=== PATIENT | male | born 1955 | race Caucasian/White ===

== ENCOUNTER 2017-04-21 08:47 | Day surgery (SDC) | payer OTHER ==
[2017-04-19 09:49] VITALS: BMI 32.5
[~2017-04-21 08:47] MED LIST: LACTATED RINGERS 1,000 ML IV SCH; MOXIFLOXACIN HCL 0.5% DROPS 3 ML BTL OP ONE; TETRACAINE 0.5% OPHTH (PF) DROPS 4 ML BTL OP ONE; TIMOLOL 0.5% OPHTH DROPS 5 ML BTL OP ONE
[2017-04-21] MEDS ORDERED: LIDOCAINE 1% 20 ML VIAL (10MG/ML) FOR IV START INTRADERMA ONE (10:10)
[2017-04-21 10:20] VITALS: TEMP 97.9
[2017-04-21] MEDS: CYCLOPENTOLATE 1% OPHTH SOLN 2 ML BTL OP ONE ×3 (10:23→10:35)
[2017-04-21] MEDS: PHENYLEPHRINE 2.5% OPHTH DRP 2ML OP NR ×3 (10:26→10:38)
[2017-04-21] MEDS ORDERED: MIDAZOLAM 2 MG/2 ML VIAL ONE (10:59)
[2017-04-21] MEDS ORDERED: KETOROLAC 30 MG/ML 1 ML VIAL ONE (10:59)
[2017-04-21] MEDS ORDERED: fentaNYL (PF) 50 MCG/ML 2 ML AMP ONE (10:59)
[2017-04-21] MEDS ORDERED: BALANCED SALT IRRIG SOLN COMB2 15 ML IRRIG.SOLN INTRAOCULA ONE (11:06)
[2017-04-21] MEDS ORDERED: DUOVISC KIT (GREEN BOX) INTRAOCULA ONE (11:06)
[2017-04-21] MEDS ORDERED: LIDOCAINE 1% (PF) 10MG/ML VIAL MISCELLANE ONE ×2 (11:08)
[2017-04-21] MEDS ORDERED: EPINEPHrine (PF) 1 MG/ML AMP SQ ONE (11:09)
[2017-04-21] MEDS ORDERED: EPINEPHrine (PF) 0.3 ML in BALANCED SALT IRRIG SOLN COMB2 500 ML IRRIGATION ONE (11:10)
[2017-04-21] MEDS ORDERED: ATROPINE OPHTH SOLN 1% 5ML BTL RIGHT EYE ONE (11:47)
--- NOTE | 2017-04-21 11:51 | P.OP ---
Date of Procedure: 04/21/17 Preoperative Diagnosis: NS & POAG mild Postoperative Diagnosis: same Procedure(s) Performed: PIOL OD & iStent implantation Implants: [id number] 13 .00 x 2.00 & [id number] Anesthesia: MAC Surgeon: Lincoln Hernadez Estimated Blood Loss (ml): 0 Pathology: none sent Condition: stable Disposition: same day Indications for Procedure: POAG & blurry vision Operative Findings: No complications
[2017-04-21 12:49] VITALS: BP 125/77; PULSE 70; RESP 16
--- NOTE | 2017-04-21 14:44 | OP ---
OPERATIVE REPORT DATE OF SURGERY: 21 April 2017. PROCEDURE PERFORMED: Phacoemulsification of cataract and intraocular lens implant of the right eye with eye stent implantation, right eye. PREOPERATIVE DIAGNOSES: Nuclear sclerosis and primary open-angle glaucoma mild stage. POSTOPERATIVE DIAGNOSES: Nuclear sclerosis and primary open angle glaucoma mild stage. SURGEON: Dr. Lincoln Hernadez. ANESTHESIA: Topical. ESTIMATED BLOOD LOSS: None. SPECIMEN: Taken none. NARRATIVE: After obtaining the appropriate consent, the patient was brought to the operating room. There he was placed on cardiac monitoring prepped and draped in the usual sterile manner. He was approached from the right temporal side and using previously acquired corneal topography information the axis of 93 degrees was identified and marked with an Acumed corneal marking set. In addition a 5.5 mm Ricardo ring was used to robyn the central cornea. At the 11 o'clock position an MVR blade was used to create a paracentesis port through this opening 1% Xylocaine MPF 50 50 mix with balanced salt solution was injected into the anterior chamber. This was followed by stabilization of the anterior chamber with Viscoat. A small amount of viscoelastic was placed on the patient's cornea. At the 9 o'clock position, 2.75 mm clarence keratome was used to create a self-sealing corneal flap incision in a lying man's fashion. The patient was then asked to rotate his head approximately 45 degrees to his left and to look the in that general direction. A colonial prism was placed on the patient's cornea and the trabecular mesh was easily identified. A GlaFeaturespaceos model DTS 100 mL eye stent was passed across the anterior chamber and placed within the trabecular meshwork without difficulty. The patient was then returned to the normal supine position and a cystotome was used to begin a continuous tear capsulorrhexis which was completed using the Utrata forceps. Care was taken to ensure that the size of the capsulorrhexis was at least the size of the 5.5 mm Ricardo robyn on the patient's cornea. Hydrodissection and hydrodelineation of the lens was accomplished with balanced salt solution. Phacoemulsification of the lens utilizing phaco chop was accomplished in 17.42 seconds at 12% power. Additional Xylocaine MPF was instilled into the anterior chamber. This was followed by removal of the remaining cortex in and around the capsular bag and careful polishing of the posterior capsule was accomplished. Provisc was then used to stabilize the capsular bag and using both Arenac and pepose capsule polishers care was taken to remove any residual cortical material from under the anterior capsular leaflet as well as much could be retrieved from the equator of the capsular bag. Once the capsule was clean, the temporal incision was enlarged slightly with a clarence keratome and a Bausch and Lomb crystal lens true line BL1UT 13 diopter spherical equivalent 2 diopter astigmatic correction was placed into the capsular bag without difficulty. The lens was rotated using a Sinskey hook and rotated at least 270 degrees to ensure there were no strands of residual cortex that may impede the placement of the lens implant. Once the lens was largely in its proper position Viscoat viscoelastic was removed from in and around the intra-ocular lens with the irrigation aspiration tip. Final adjustment of the intra-ocular lens was accomplished using a Sinskey hook to align with the 93 degree axis, which had previously been placed on the patient's eye. The eye was then brought to normal intraocular pressures through the paracentesis port and to ensure watertight integrity ReSure was used on the temporal and paracentesis wounds. The patient then received 2 drops of 0.5% timolol followed by 2 drops of moxifloxacin and 2 drops of 1% atropine. He was then lightly patched and shielded in the usual manner. There were no complications from the procedure. He tolerated the procedure well and was returned to outpatient recovery in good condition. TAURUS / ЮЛИЯ: [id number] /
== END 2017-04-21 13:03 | disposition home or self-care (01) ==
LOC: OR 08:47
PROVIDERS: ATTEND Ophthalmology
DX: H25.11 Age-related nuclear cataract, right eye (principal); H40.1111 Primary open-angle glaucoma, right eye, mild stage; H21.233 Degeneration of iris (pigmentary), bilateral; H02.836 Dermatochalasis of left eye, unspecified eyelid; H02.833 Dermatochalasis of right eye, unspecified eyelid; H00.023 Hordeolum internum right eye, unspecified eyelid; H52.13 Myopia, bilateral; H00.026 Hordeolum internum left eye, unspecified eyelid; E66.9 Obesity, unspecified; Z68.32 Body mass index [BMI] 32.0-32.9, adult; Z85.46 Personal history of malignant neoplasm of prostate; Z79.899 Other long term (current) drug therapy
CPT/HCPCS: 0191T; 66984

== ENCOUNTER 2017-05-19 08:52 | Day surgery (SDC) | payer OTHER ==
[2017-05-14 16:14] VITALS: BMI 32.5
[~2017-05-19 08:52] MED LIST changes: -LACTATED RINGERS 1,000 ML IV SCH
[2017-05-19] MEDS ORDERED: LIDOCAINE 1% 20 ML VIAL (10MG/ML) FOR IV START INTRADERMA ONE (09:37)
[2017-05-19 09:58] VITALS: TEMP 97.9
[2017-05-19] MEDS: CYCLOPENTOLATE 1% OPHTH SOLN 2 ML BTL OP ONE ×3 (10:01→10:14)
[2017-05-19] MEDS: PHENYLEPHRINE 2.5% OPHTH DRP 2ML OP NR ×3 (10:04→10:18)
[2017-05-19] MEDS: LACTATED RINGERS 1,000 ML IV SCH ×2 (10:16→11:45)
[2017-05-19] MEDS ORDERED: MIDAZOLAM 2 MG/2 ML VIAL ONE (11:47)
[2017-05-19] MEDS ORDERED: fentaNYL (PF) 50 MCG/ML 2 ML AMP ONE (11:47)
[2017-05-19] MEDS ORDERED: BALANCED SALT IRRIG SOLN COMB2 15 ML IRRIG.SOLN IRRIGATION ONE (11:48)
[2017-05-19] MEDS ORDERED: DUOVISC KIT (GREEN BOX) INTRAOCULA ONE (11:49)
[2017-05-19] MEDS ORDERED: LIDOCAINE 1% (PF) 10MG/ML VIAL INTRAARTIC ONE ×2 (11:49)
[2017-05-19] MEDS ORDERED: EPINEPHrine 1 MG/ML 1 ML AMP IRRIGATION ONE (11:50)
[2017-05-19] MEDS ORDERED: CHONDROITIN-SOD HYALURONATE 1 EACH SYRINGE (0.75 ML) INTRAOCULA ONE (12:08)
[2017-05-19] MEDS ORDERED: FLUORESCEIN STRIPS 1 MG STRIP LEFT EYE ONE (12:09)
[2017-05-19] MEDS ORDERED: ATROPINE OPHTH SOLN 1% 5ML BTL LEFT EYE ONE (12:47)
--- NOTE | 2017-05-19 12:50 | P.OP ---
Date of Procedure: 05/19/17 Preoperative Diagnosis: NS & POAG astigmatism Postoperative Diagnosis: same Procedure(s) Performed: PIOL & iStent implant Implants: [id number] & iStent [id number] Anesthesia: MAC Surgeon: Lincoln Hernadez Pathology: none sent Condition: stable Disposition: same day Indications for Procedure: blurry vision Operative Findings: No complications
[2017-05-19 12:52] VITALS: RESP 16
[2017-05-19 13:11] VITALS: BP 134/74; PULSE 73
--- NOTE | 2017-05-20 09:12 | OP ---
OPERATIVE REPORT DATE OF SURGERY: 05/19/2017. PROCEDURE: Phacoemulsification of cataract and intraocular lens implant of the left eye with eye stent implantation left eye. PREOPERATIVE DIAGNOSES: Nuclear sclerosis and primary open-angle glaucoma, moderate stage and regular astigmatism. POSTOPERATIVE DIAGNOSES: Nuclear sclerosis and primary open-angle glaucoma, moderate stage and regular astigmatism. SURGEON: Dr. Lincoln Hernadez. ANESTHESIA: Topical. ESTIMATED BLOOD LOSS: None. SPECIMEN TAKEN: None. NARRATIVE: After obtaining the appropriate consent, the patient was brought to the operating room there he was placed under cardiac monitoring, prepped and draped in the usual sterile manner. He was approached from his left temporal side. Using previously acquired corneal topography information the axis of 85 degrees was identified and marked with a gentian joshua marker. In the center of the cornea, a 5.5 mm Ricardo ring inked with gentian joshua was placed central over the primary corneal reflex. At the 5 o'clock position an MVR blade was used to create a paracentesis port. Through this opening 1% Xylocaine MPF 50:50 mix with balanced salt solution and 1:1000 epinephrine was instilled into the anterior chamber. This was followed by stabilization of the anterior chamber with Viscoat. At the 3 o'clock position, a 2.75 mm clarence keratome was used to create a self-sealing corneal flap incision in a Langerman's fashion. A small amount of Viscoat was then placed on the patient's cornea. The patient was then asked to rotate his head to the right and look in that general direction that his head was facing. A gonioprism was placed on the patient's cornea and the trabecular meshwork was identified. A Glaukos iStent model GTS 100L was then placed into the trabecular meshwork with minimal difficulty. The patient was then rotated back into the normal supine position and it appeared that his mydriasis was being satisfactorily maintained. A cystotome was then introduced to begin a continuous tear capsulorrhexis which was completed using the Utrata forceps. Care was taken to ensure that the size of the capsulorrhexis was at least the size of the robyn placed centrally on the patient's cornea previously in the case. Hydrodissection and hydrodelineation of the lens was accomplished with balanced salt solution. Phacoemulsification lens utilizing phaco chop was accomplished, 11.79 seconds at 10% power. This was followed by installation of the lidocaine, epinephrine, and BSS to provide a little additional intracameral anesthesia. Care was taken to remove the remaining cortex and careful polishing of the posterior capsule was accomplished. Additional Provisc was then used to stabilize the capsule and using the Lydia and Pepose capsule polishers, care was taken to remove as much of the cortical material from under the anterior capsule as well as whatever was not appreciated at the equator during normal irrigation and aspiration. The temporal incision was then enlarged slightly and a Bausch and Lomb true line model BL1UT 12.5 x 2.75 diopter posterior chamber intraocular lens was then inserted into the capsular bag without difficulty. The lens was rotated to identify any remaining cortical material, which might require additional capsular cleaning. Once all remaining strands of cortex which were hidden from view were removed. The lens was then positioned in the 85 degree axis as previously marked on the patient's eye. Irrigation and aspiration of all remaining viscoelastic from in and around the intra-ocular lens as well as tamponading the lens against the posterior capsule was accomplished. The eye was brought to normal intraocular pressure through the paracentesis port with balanced salt solution and the temporal incision was closed with a single 10-0 nylon suture in an X fashion and ensuring that even the paracentesis did not contribute to a any aqueous leak ReSure was placed over both incisions to confirm watertight integrity. He then received 2 drops of 0.5% timolol followed by 2 drops of moxifloxacin as well as a drop of 1% atropine. He was lightly patched and shielded in the usual manner. There were no complications from the procedure. He tolerated the procedure well and was returned to outpatient recovery in good condition. MMODL / IJN: [id number] / TING
== END 2017-05-19 13:24 | disposition home or self-care (01) ==
LOC: OR 08:52
PROVIDERS: ATTEND Ophthalmology
DX: H25.12 Age-related nuclear cataract, left eye (principal); H40.1132 Primary open-angle glaucoma, bilateral, moderate stage; H21.233 Degeneration of iris (pigmentary), bilateral; H02.833 Dermatochalasis of right eye, unspecified eyelid; H02.836 Dermatochalasis of left eye, unspecified eyelid; H00.023 Hordeolum internum right eye, unspecified eyelid; H52.13 Myopia, bilateral; H00.026 Hordeolum internum left eye, unspecified eyelid; H40.041 Steroid responder, right eye; H57.04 Mydriasis; H52.222 Regular astigmatism, left eye; Z98.41 Cataract extraction status, right eye; Z96.1 Presence of intraocular lens; Z85.46 Personal history of malignant neoplasm of prostate; Z79.899 Other long term (current) drug therapy; Z97.3 Presence of spectacles and contact lenses; Z90.79 Acquired absence of other genital organ(s)
CPT/HCPCS: 0191T; 66984

== ENCOUNTER → 2018-09-30 | Outpatient (CLI) | payer BC ==
--- NOTE | 2018-09-30 10:32 | US ---
EXAMINATION TYPE: US venous doppler duplex LE LT DATE OF EXAM: 09/30/2018 10:16 AM COMPARISON: NONE CLINICAL HISTORY: M25.569 pain left leg. SIDE PERFORMED: Left TECHNIQUE: The lower extremity deep venous system is examined utilizing real time linear array sonog suma with graded compression, doppler sonography and color-flow sonography. VESSELS IMAGED: External Iliac Vein (EIV) Common Femoral Vein Deep Femoral Vein Greater Saphenous Vein * Femoral Vein Popliteal Vein Small Saphenous Vein * Proximal Calf Veins (* superficial vessels) Grayscale, color doppler, spectral doppler imaging performed of the deep veins of the left lower extr emity. There is normal flow, compressibility, vascular waveforms. Left Leg: Negative for DVT IMPRESSION: No sonographic evidence of deep venous arthrosis within the left lower extremity.
== END | disposition home or self-care (01) ==
LOC: RADUSWWP 09:51
PROVIDERS: ATTEND Orthopaedic Surgery
DX: I80.9 Phlebitis and thrombophlebitis of unspecified site (principal); M17.12 Unilateral primary osteoarthritis, left knee

== ENCOUNTER 2019-05-31 17:08 | Emergency (ER) | payer BC ==
[2019-05-31 17:17] VITALS: RESP 18; TEMP 98
--- NOTE | 2019-05-31 17:47 | ED ---
General Adult HPI - General Chief complaint: Chest Pain Stated complaint: Chest pain, SOB Time Seen by Provider: 05/31/19 17:23 Source: patient, RN notes reviewed, old records reviewed Mode of arrival: wheelchair Limitations: no limitations - History of Present Illness Initial comments: 63-year-old male presents for evaluation of 3 days of central chest tightness. Patient has no known history of coronary artery disease. He states that approximately 10 days he developed some left lower quadrant pain and was put on Cipro and Flagyl for diverticulitis. He states that the symptoms have nearly resolved with some minimal pain in the left lower quadrant. He felt that initially the chest tightness may be related to indigestion from the medications he was on. However he's been off his medications for 3 days and his symptoms have persisted. He reports some mild dyspnea, he did feel lightheaded earlier in the day today. No lower extremity pain or swelling. Borderline high cholesterol. No history diabetes. Nonsmoker. No known coronary artery disease. - Related Data Home Medications Medication Instructions Recorded Confirmed Naproxen Sodium 220 mg PO Q6H PRN 05/31/19 05/31/19 Allergies Allergy/AdvReac Type Severity Reaction Status Date / Time No Known Allergies Allergy Verified 05/31/19 17:51 Review of Systems ROS Statement: Those systems with pertinent positive or pertinent negative responses have been documented in the HPI. ROS Other: All systems not noted in ROS Statement are negative. Past Medical History Past Medical History: Cancer, Eye Disorder Additional Past Medical History / Comment(s): Prostate CA/2017,glaucoma History of Any Multi-Drug Resistant Organisms: None Reported Past Surgical History: Orthopedic Surgery, Prostate Surgery Additional Past Surgical History / Comment(s): left Knee- scope; Colonoscopy Past Anesthesia/Blood Transfusion Reactions: No Reported Reaction Past Psychological History: No Psychological Hx Reported Smoking Status: Never smoker Past Alcohol Use History: Occasional Past Drug Use History: None Reported - Past Family History Mother Family Medical History: Cancer Additional Family Medical History / Comment(s): Colon CA General Exam Limitations: no limitations General appearance: alert, in no apparent distress Head exam: Present: atraumatic, normocephalic Eye exam: Present: normal appearance, PERRL ENT exam: Present: normal exam Neck exam: Present: normal inspection. Absent: tenderness, meningismus Respiratory exam: Present: normal lung sounds bilaterally. Absent: respiratory distress, wheezes Cardiovascular Exam: Present: regular rate, normal rhythm, normal heart sounds GI/Abdominal exam: Present: soft. Absent: distended, tenderness, guarding, rebound Extremities exam: Present: normal inspection, normal capillary refill. Absent: pedal edema, calf tenderness Neurological exam: Present: alert, oriented X3, CN II-XII intact. Absent: motor sensory deficit Psychiatric exam: Present: normal affect, normal mood Skin exam: Present: warm, dry, intact. Absent: cyanosis, diaphoretic Course Vital Signs 05/31/19 05/31/19 05/31/19 17:11 18:00 18:30 Temperature 98 F Pulse Rate 69 56 L 62 Respiratory 18 18 18 Rate Blood Pressure 134/80 128/87 135/83 O2 Sat by Pulse 98 97 98 Oximetry EKG Findings - EKG Comments: EKG Findings:: EKG: Sinus rhythm with PVC, rate of 65, MO interval 160, QRS duration 110, QTC 472, no ST segment elevation. Medical Decision Making - Medical Decision Making 63-year-old male with chief complaint of substernal chest pain. Patient initially thought this was indigestion. He's had constant symptoms for 3 days. His EKG is sinus rhythm with no ST segment elevation or definitive signs of ischemia. Chest x-ray showing a calcified granuloma no other acute findings. Has a normal CBC, normal CMP, negative d-dimer, negative troponin. I did have a discussion with both the patient and his primary care physician Dr. Gianluca pacheco inpatient versus outpatient follow-up. Given the current coronavirus and he low suspicion for CAD at this time we all agreed to outpatient follow-up with close return parameters. Patient will return with any worsening or changing symptoms. - Lab Data Result diagrams: 05/31/19 18:12 05/31/19 18:12 Lab Results 05/31/19 05/31/19 05/31/19 Range/Units 18:12 18:12 18:12 WBC 5.3 (3.8-10.6) k/uL RBC 4.36 (4.30-5.90) m/uL Hgb 13.5 (13.0-17.5) gm/dL Hct 41.0 (39.0-53.0) % MCV 94.0 (80.0-100.0) fL MCH 31.0 (25.0-35.0) pg MCHC 33.0 (31.0-37.0) g/dL RDW 14.1 (11.5-15.5) % Plt Count 196 (150-450) k/uL Neutrophils % 49 % Lymphocytes % 35 % Monocytes % 6 % Eosinophils % 7 % Basophils % 1 % Neutrophils # 2.6 (1.3-7.7) k/uL Lymphocytes # 1.9 (1.0-4.8) k/uL Monocytes # 0.3 (0-1.0) k/uL Eosinophils # 0.4 (0-0.7) k/uL Basophils # 0.0 (0-0.2) k/uL PT 10.1 (9.0-12.0) sec INR 1.0 (<1.2) APTT 25.6 (22.0-30.0) sec D-Dimer 0.42 (<0.60) mg/L FEU Sodium 137 (137-145) mmol/L Potassium 3.8 (3.5-5.1) mmol/L Chloride 106 (98-107) mmol/L Carbon Dioxide 24 (22-30) mmol/L Anion Gap 7 mmol/L BUN 18 (9-20) mg/dL Creatinine 0.94 (0.66-1.25) mg/dL Est GFR (CKD-EPI)AfAm >90 (>60 ml/min/1.73 sqM) Est GFR (CKD-EPI)NonAf 86 (>60 ml/min/1.73 sqM) Glucose 84 (74-99) mg/dL Calcium 9.3 (8.4-10.2) mg/dL Magnesium 2.1 (1.6-2.3) mg/dL Total Bilirubin 0.4 (0.2-1.3) mg/dL AST 36 (17-59) U/L ALT 58 H (4-49) U/L Alkaline Phosphatase 59 (38-126) U/L Troponin I (0.000-0.034) ng/mL NT-Pro-B Natriuret Pep pg/mL Total Protein 6.8 (6.3-8.2) g/dL Albumin 4.2 (3.5-5.0) g/dL Lipase 139 (23-300) U/L 05/31/19 05/31/19 Range/Units 18:12 18:12 WBC (3.8-10.6) k/uL RBC (4.30-5.90) m/uL Hgb (13.0-17.5) gm/dL Hct (39.0-53.0) % MCV (80.0-100.0) fL MCH (25.0-35.0) pg MCHC (31.0-37.0) g/dL RDW (11.5-15.5) % Plt Count (150-450) k/uL Neutrophils % % Lymphocytes % % Monocytes % % Eosinophils % % Basophils % % Neutrophils # (1.3-7.7) k/uL Lymphocytes # (1.0-4.8) k/uL Monocytes # (0-1.0) k/uL Eosinophils # (0-0.7) k/uL Basophils # (0-0.2) k/uL PT (9.0-12.0) sec INR (<1.2) APTT (22.0-30.0) sec D-Dimer (<0.60) mg/L FEU Sodium (137-145) mmol/L Potassium (3.5-5.1) mmol/L Chloride (98-107) mmol/L Carbon Dioxide (22-30) mmol/L Anion Gap mmol/L BUN (9-20) mg/dL Creatinine (0.66-1.25) mg/dL Est GFR (CKD-EPI)AfAm (>60 ml/min/1.73 sqM) Est GFR (CKD-EPI)NonAf (>60 ml/min/1.73 sqM) Glucose (74-99) mg/dL Calcium (8.4-10.2) mg/dL Magnesium (1.6-2.3) mg/dL Total Bilirubin (0.2-1.3) mg/dL AST (17-59) U/L ALT (4-49) U/L Alkaline Phosphatase (38-126) U/L Troponin I <0.012 (0.000-0.034) ng/mL NT-Pro-B Natriuret Pep 37 pg/mL Total Protein (6.3-8.2) g/dL Albumin (3.5-5.0) g/dL Lipase (23-300) U/L Disposition Clinical Impression: Chest pain Disposition: HOME SELF-CARE Condition: Good Instructions (If sedation given, give patient instructions): Chest Pain (ED) Additional Instructions: Please return with any worsening or changing symptoms. Is patient prescribed a controlled substance at d/c from ED?: No Referrals: Kurtis Hough MD [Primary Care Provider] - 1-2 days Time of Disposition: 19:34
[2019-05-31 18:32] LABS: Basophils % (A) 1 %; Eosinophils # (A) 0.4 k/uL (0-0.7); Eosinophils % (A) 7 %; HGB 13.5 gm/dL (13.0-17.5); Lymphocytes # (A) 1.9 k/uL (1.0-4.8); Lymphocytes % (A) 35 %; Mean Platelet Volume 7.1; Monocytes # (A) 0.3 k/uL (0-1.0); Monocytes % (A) 6 %; Neutrophils # (A) 2.6 k/uL (1.3-7.7); Neutrophils % (A) 49 %; Platelet Count 196 k/uL (150-450); RBC 4.36 m/uL (4.30-5.90); RDW 14.1 % (11.5-15.5); WBC 5.3 k/uL (3.8-10.6)
[2019-05-31 18:47] LABS: ALT 58 U/L (4-49); AST 36 U/L (17-59); African American GFR (CKD) >90 (>60 ml/min/1.73 sqM); Albumin 4.2 g/dL (3.5-5.0); Alkaline Phosphatase 59 U/L (38-126); Anion Gap 7 mmol/L; Blood Urea Nitrogen 18 mg/dL (9-20); Calcium 9.3 mg/dL (8.4-10.2); Carbon Dioxide 24 mmol/L (22-30); Chloride 106 mmol/L (98-107); Glucose 84 mg/dL (74-99); Magnesium 2.1 mg/dL (1.6-2.3); Non-African American GFR(CKD) 86 (>60 ml/min/1.73 sqM); Potassium 3.8 mmol/L (3.5-5.1); Sodium 137 mmol/L (137-145); Total Bilirubin 0.4 mg/dL (0.2-1.3); Total Protein 6.8 g/dL (6.3-8.2)
[2019-05-31 18:49] LABS: D-Dimer 0.42 mg/L FEU (<0.60); Partial Thromboplastin Time 25.6 sec (22.0-30.0); Prothrombin Time 10.1 sec (9.0-12.0)
--- NOTE | 2019-05-31 19:07 | XR ---
EXAMINATION TYPE: XR chest 1V DATE OF EXAM: 05/31/2019 COMPARISON: NONE HISTORY: 63-year-old male with chest pain TECHNIQUE: Single frontal view of the chest is obtained. FINDINGS: Heart upper limits of normal in size. Multiple calcified AP window and left hilar lymph nodes suggest prior granulomatous disease. Hazy peripheral lung densities related to overlying soft tissue. No fra nk consolidation or pleural effusion seen. IMPRESSION: No acute cardiopulmonary process. Suspect prior granulomatous disease with calcified AP window and le ft hilar lymph nodes. Outpatient follow-up CT chest can provide more detailed assessment if indicated .
[2019-05-31] MEDS ORDERED: ASPIRIN 325 MG TAB PO STA (19:17)
[2019-05-31 20:08] VITALS: BP 147/85; PULSE 58
== END 2019-05-31 20:20 | disposition home or self-care (01) ==
LOC: EC 17:08
DX: R07.2 Precordial pain (principal); R06.02 Shortness of breath; R10.32 Left lower quadrant pain; R42 Dizziness and giddiness; J84.10 Pulmonary fibrosis, unspecified; Z85.46 Personal history of malignant neoplasm of prostate; Z87.19 Personal history of other diseases of the digestive system
CPT/HCPCS: 36415; 71045; 80053; 83690; 83735; 83880; 84484; 85025; 85379; 85610; 85730; 93005; 99285

== ENCOUNTER → 2019-06-14 | Outpatient (CLI) | payer BC ==
--- NOTE | 2019-06-14 11:46 | ECHOS ---
STRESS ECHOCARDIOGRAM INDICATIONS: Chest pain. MEDICATIONS: Omeprazole. BASELINE HEART RATE: 80 BASELINE BLOOD PRESSURE: 125/68 MAXIMUM HEART RATE: 149 MAXIMUM BLOOD PRESSURE: 179/66 85% MPHR: 133 100% MPHR: 157 METS: 7.1 MAXIMUM STAGE REACHED: 2 TOTAL EXERCISE TIME: 6:00 CLINICAL INFORMATION: Baseline EKG shows sinus rhythm, normal axis, normal intervals. Patient exercised per Cade protocol for a total of 6 minutes achieving 7.1 METs, 85% of predicted maximal heart rate without chest pain or diagnostic ST segment depression. Baseline echo shows normal left ventricular wall motion, systolic function, postexercise there is normal hyperdynamic response of all segments of myocardium noted. CONCLUSION: 1. Average exercise tolerance. 2. Negative stress test by EKG criteria. 3. Negative stress echo. MMODL / IJN: [id number] /
== END | disposition home or self-care (01) ==
LOC: RADNMMAIN 08:08
PROVIDERS: ATTEND Family Medicine
DX: R07.89 Other chest pain (principal)
CPT/HCPCS: 93351

== ENCOUNTER → 2021-11-27 | Outpatient (CLI) | payer MEDICARE, BC | END | disposition home or self-care (01) | LOC: LABWHC1 10:44 | PROVIDERS: ATTEND Urology | DX: C61 Malignant neoplasm of prostate (principal) | CPT/HCPCS: 36415; 84153 ==

== ENCOUNTER → 2022-05-11 | Outpatient (CLI) | payer MEDICARE ==
[2022-05-11 17:42] LABS: African American GFR (CKD) >90 (>60 ml/min/1.73 sqM); Blood Urea Nitrogen 20 mg/dL (9-20); Non-African American GFR(CKD) 82 (>60 ml/min/1.73 sqM)
--- NOTE | 2022-05-11 20:37 | CT ---
EXAMINATION TYPE: CT abdomen pelvis w con CT DLP: 1809.9 mGycm, Automated exposure control for dose reduction was used. DATE OF EXAM: 05/11/2022 7:19 PM COMPARISON: CT abdomen pelvis most recent from CLINICAL INDICATION:Male, 66 years old with history of K57.92 DVTRCLI OF INTEST, PART UNSP; Hx of div erticulitis. Pt c/o of mid abdominal pain. TECHNIQUE: Axial CT of the abdomen and pelvis. Sagittal and coronal reformats were created on a [employer] workstation. Contrast used:100cc mL of Isovue 300 with IV Contrast, Oral contrast used: with Oral Contrast FINDINGS: LOWER CHEST: Left pulmonary calcified granuloma and partially calcified lymph nodes. These are compat ible with sequela of chronic granulomatous disease. ABDOMEN LIVER: Unremarkable GALLBLADDER AND BILE DUCTS: Unremarkable. PANCREAS: Unremarkable. SPLEEN: Unremarkable. ADRENAL GLANDS: Unremarkable. KIDNEYS AND URETERS: No evidence of hydronephrosis or renal calculus. The ureters are unremarkable. PELVIS BLADDER: Unremarkable REPRODUCTIVE: Unremarkable. ABDOMEN & PELVIS STOMACH AND BOWEL: No evidence of bowel obstruction. Scattered colonic diverticula present. No signif icant inflammation changes around the diverticula. PERITONEUM/RETROPERITONEUM: No evidence of pneumoperitoneum or free fluid. VASCULATURE: Mild atherosclerotic calcifications are present throughout the abdominal aorta and its b ranches. No evidence of aortic aneurysm. MUSCULOSKELETAL: No acute osseous abnormalities. Mild disc degeneration changes are present throughou t the thoracolumbar spine. LYMPH NODES: No gross evidence for lymphadenopathy. SOFT TISSUE/ABDOMINAL WALL: Unremarkable IMPRESSION: 1. No evidence for acute intra-abdominal process. 2. Colonic diverticulosis without evidence for diverticulitis.
== END | disposition home or self-care (01) ==
LOC: RADCTMAIN 17:02
PROVIDERS: ATTEND Family Medicine
DX: K57.30 Diverticulosis of large intestine without perforation or abscess without bleeding (principal)
CPT/HCPCS: 82565; 84520; 74177; 36415; Q9967

== ENCOUNTER → 2022-12-23 | Outpatient (CLI) | payer MEDICARE | END | disposition home or self-care (01) | LOC: LABWHC1 11:32 | PROVIDERS: ATTEND Urology | DX: C61 Malignant neoplasm of prostate (principal) | CPT/HCPCS: 36415; 84153 ==

== ENCOUNTER → 2023-12-29 | Outpatient (CLI) | payer MEDICARE | END | disposition home or self-care (01) | LOC: LABWHC1 10:30 | PROVIDERS: ATTEND Urology | DX: C61 Malignant neoplasm of prostate (principal) | CPT/HCPCS: 36415; 84153 ==

== ENCOUNTER → 2024-02-24 | Outpatient (CLI) | payer MEDICARE ==
[2024-02-24 15:11] LABS: Partial Thromboplastin Time 23.3 sec (22.0-30.0)
[2024-02-24 15:27] LABS: INR 0.9 (<1.2); Prothrombin Time 10.2 sec (10.0-12.5)
[2024-02-24 20:28] LABS: HCT 43.5 % (39.6-50.0); HGB 14.2 g/dL (13.0-17.0); MCH 30.9 pg (27.0-32.0); MCHC 32.6 g/dL (32.0-37.0); MCV 94.6 FL (80.0-97.0); Mean Platelet Volume 9.6 FL (9.5-12.2); NRBC Per 100 WBC 0 X 10*3/uL (0.00-0.01); Platelet Count 272 X 10*3/uL (140-440); RDW 14.2 % (11.5-14.5); WBC 9.21 X 10*3/uL (4.50-10.00)
[2024-02-24 21:01] LABS: ALT 21 U/L (10-49); AST 16 U/L (14-35); Albumin 4.4 g/dL (3.8-4.9); Albumin/Globulin Ratio 1.83 Ratio (1.60-3.17); Alkaline Phosphatase 78 U/L (41-126); BUN/Creat Ratio 15.23 Ratio (12.00-20.00); Blood Urea Nitrogen 19.8 mg/dL (9.0-27.0); Calcium 9.5 mg/dL (8.7-10.3); Carbon Dioxide 24.1 mmol/L (21.6-31.8); Chloride 105 mmol/L (96-109); Globulin 2.4 g/dL (1.6-3.3); Glucose 99 mg/dL (70-110); Potassium 4.2 mmol/L (3.5-5.5); Sodium 141 mmol/L (135-145); Total Bilirubin 0.3 mg/dL (0.3-1.2); Total Protein 6.8 g/dL (6.2-8.2)
== END | disposition home or self-care (01) ==
LOC: LABPAT 14:25
PROVIDERS: ATTEND Orthopaedic Surgery
DX: Z01.818 Encounter for other preprocedural examination (principal); Z22.322 Carrier or suspected carrier of Methicillin resistant Staphylococcus aureus; E11.9 Type 2 diabetes mellitus without complications; M17.12 Unilateral primary osteoarthritis, left knee
CPT/HCPCS: 80053; 83036; 85027; 85610; 85730; 87070; 93005

== ENCOUNTER → 2024-03-02 | Outpatient (CLI) | payer MEDICARE ==
--- NOTE | 2024-03-02 10:41 | CT ---
EXAMINATION TYPE: CT left knee - [facility] Protocol DATE OF EXAM: 03/02/2024 8:55 AM COMPARISON: None. CLINICAL INDICATION: Male, 68 years old with history of M17.12 OA LEFT KNEE, left knee [facility] protocol, TECHNIQUE: CT both hips, left knee, and both ankles for presurgical protocol. Coronal and sagittal re constructions performed. CT DLP: 627 mGycm, Automated exposure control for dose reduction was used. FINDINGS: Hips: There is [id number] degenerative change at both hips. Prostate gland not seen, possibly smaller surgically absent. No acute fracture, subluxation, dislocation. Left knee: Evidence of previous ACL graft reconstruction. However, there is tricompartmental degenerative spurri ng with significant joint space narrowing in the medial and lateral compartments and along the medial facets and the patellofemoral compartment. Small knee joint effusion. Suspect a ganglion cysts along the posterior aspect of the knee extending superiorly measuring 4.2 x 2.3 cm. Ankles: The bilateral tibiotalar joints are intact as there is some ossific densities at the right medial mal leolus and anterior margin of the tibiotalar joint on the right suggesting sequela of old injury and underlying focal osteoarthritic change. No acute fracture, subluxation, dislocation is seen. IMPRESSION: 1. IMAGING FOR SURGICAL PLANNING PURPOSES. THERE IS MODERATE TO SEVERE LEFT KNEE OA STATUS POST ACL G RAFT RECONSTRUCTION. INCIDENTAL 4.2 X 2.3 CM GANGLION CYST POSTERIOR SUPERIOR ASPECT OF THE LEFT KNEE . 2. [id number] BILATERAL HIP OA. SOME FOCAL OSTEOARTHRITIC CHANGE ALONG THE ANTERIOR ASPECT OF T HE RIGHT TIBIOTALAR JOINT. [facility], , 03/02/2024 10:38 AM
== END | disposition home or self-care (01) ==
LOC: RADCTMAIN 07:45
PROVIDERS: ATTEND Orthopaedic Surgery
DX: M17.12 Unilateral primary osteoarthritis, left knee (principal); M16.0 Bilateral primary osteoarthritis of hip; M67.462 Ganglion, left knee

== ENCOUNTER 2024-03-24 07:53 | Day surgery (SDC) | payer MEDICARE ==
[~2024-03-24 07:53] MED LIST changes: +ACETAMINOPHEN TAB 500 MG TAB PO PRN; -MOXIFLOXACIN HCL 0.5% DROPS 3 ML BTL OP ONE; -TETRACAINE 0.5% OPHTH (PF) DROPS 4 ML BTL OP ONE; -TIMOLOL 0.5% OPHTH DROPS 5 ML BTL OP ONE; +TRANEXAMIC 1,000 MG/100ML-NACL 1,000 MG in SALINE 1 100ML.BAG IV PRN; +TRANEXAMIC 1,000 MG/100ML-NACL 1,000 MG in SALINE 1 100ML.BAG IVPB PRN
[2024-03-24] MEDS: IV FLUID CONTINUATION 1,000 ML IV ONE ×2 (08:11→11:13)
[2024-03-24] MEDS: oxyCODONE ER 10 MG TAB.ER.12H PO PRN (08:55)
[2024-03-24] MEDS: DOCUSATE 100 MG CAP PO PRN (08:55)
[2024-03-24] MEDS: MIDAZOLAM 2 MG/2 ML VIAL IV PRN (08:57)
[2024-03-24] MEDS: LACTATED RINGERS 1,000 ML IV SCH ×2 (09:07→17:33)
--- NOTE | 2024-03-24 09:07 | P.ANPRN ---
Procedure Note - Anesthesia - Nerve Block Performed Left Adductor Canal Single Time Out Performed: Yes ([id number]) Date of Procedure: 03/24/24 Procedure Start Time: 09:00 Procedure Stop Time: 09:10 Location of Patient: PreOp Indication: Acute Post-Operative Pain, Requested by Surgeon Sedation Type: Sedate with meaningful contact maintained Preparation: Sterile Prep, Sterile Dressing Position: Supine Catheter: None Needle Types: Pajunk Needle Gauge: 21 Ultrasound used to visualize needle placement: Yes Ultrasound used to observe medication spread: Yes Injectate: 0.5% Ropivacaine (see comment for volume) (21 mL of block solution containing 10 mL of 0.5% ropivacaine mixed with 10 mL of preservative-free normal saline, and 4 mg of dexamethasone) Blood Aspirated: No Pain Paresthesia on Injection Noted: No Resistance on Injection: Normal Image Stored and Saved: Yes Events: Uneventful and Well Tolerated
[2024-03-24] MEDS: ONDANSETRON 4 MG/2 ML VIAL IVP PRN ×2 (09:08→17:08)
[2024-03-24] MEDS: FAMOTIDINE 20 MG/2 ML VIAL IVP PRN (09:08)
[2024-03-24] MEDS: KETOROLAC 15 MG/ML 1 ML VIAL IVP PRN (09:08)
--- NOTE | 2024-03-24 09:09 | P.ANPRN ---
Procedure Note - Anesthesia - Nerve Block Performed Left iPack Single Time Out Performed: Yes ([id number]) Date of Procedure: 03/24/24 Procedure Start Time: 09:00 Procedure Stop Time: 09:10 Location of Patient: PreOp Indication: Acute Post-Operative Pain, Requested by Surgeon Sedation Type: Sedate with meaningful contact maintained Preparation: Sterile Prep, Sterile Dressing Position: Supine Catheter: None Needle Types: Pajunk Needle Gauge: 21 Ultrasound used to visualize needle placement: Yes Ultrasound used to observe medication spread: Yes Injectate: 0.5% Ropivacaine (see comment for volume) Blood Aspirated: No Pain Paresthesia on Injection Noted: No Resistance on Injection: Normal Image Stored and Saved: Yes Events: Uneventful and Well Tolerated (20 mL of block solution containing 10 mL of 0.5% ropivacaine mixed with 10 mL of preservative-free normal saline)
[2024-03-24] MEDS: DEXAMETHASONE SOD PHOSPHATE 10 MG/ML 1 ML VIAL IV PRN (09:12)
[2024-03-24] MEDS: ROPIVACAINE/EPI/CLONIDINE/KET 50 ML SYRINGE MISCELLANE PRN (10:24)
[2024-03-24] MEDS ORDERED: ROPIVACAINE 5 MG/ML 30 ML VIAL ONE (10:30)
[2024-03-24] MEDS ORDERED: MIDAZOLAM 2 MG/2 ML VIAL ONE (10:30)
[2024-03-24] MEDS ORDERED: DEXAMETHASONE SOD PHOSPHATE 4 MG/ML 1 ML VIAL ONE (10:30)
[2024-03-24] MEDS ORDERED: fentaNYL (PF) 50 MCG/ML 2 ML AMP ONE (10:30)
[2024-03-24] MEDS ORDERED: KETAMINE HCL IN 0.9 % NACL 50 MG/5 ML SYRINGE ONE (10:30)
[2024-03-24] MEDS ORDERED: HYDROmorphone (PF) 1 MG/ML ONE (10:30)
[2024-03-24] MEDS ORDERED: LIDOCAINE 1% INJ 10MG/ML (20 ML MDV) ONE (10:30)
[2024-03-24] MEDS ORDERED: SUCCINYLCHOLINE CHLORIDE 200 MG/10 ML VIAL IV ONE (10:30)
[2024-03-24] MEDS ORDERED: SODIUM CHLORIDE 0.9% (PF) 10 ML VIAL ONE (10:30)
[2024-03-24] MEDS ORDERED: PROPOFOL 10 MG/ML 20 ML VIAL IV ONE (10:30)
[2024-03-24] MEDS ORDERED: TRANEXAMIC 1,000 MG/100ML-NACL PREMIX BAG ONE (10:30)
--- NOTE | 2024-03-24 12:24 | P.OP ---
Date of Procedure: 03/24/24 Preoperative Diagnosis: Severe left knee osteoarthritis, prior ACL reconstruction Bilateral hip arthritis Postoperative Diagnosis: Same Procedure(s) Performed: 1. Left total knee arthroplasty 2. Computer assisted musculoskeletal navigation using CT/MRI images Implants: 1. [place] [employer] CR Femur Size #7 2. [place] [employer] [place] Tibial Base Size #7 3. [place] CS poly Size #7, 9-mm 4. [employer] all poly patella, Size #35 Anesthesia: SHINE, regional Surgeon: Doyle Giles [employer] Sales #1: Tapan Mathews Estimated Blood Loss (ml): 100 IV fluids (ml): 900 Pathology: none sent Condition: stable Disposition: PACU Indications for Procedure: I met with the patient preoperatively in the office setting and discussed treatment of their symptomatic knee arthritis. They failed a long course of nonsurgical treatment and elected to proceed with an elective total knee replacement. I discussed the potential risks and complications at length and gave them ample time to ask questions. Risks discussed included: risks from anesthesia, superficial site surgical infection, acute and/or chronic periprosthetic joint infection, delayed wound healing, drainage, wound necrosis, instability, stiffness, stiffness requiring manipulation and/or revision surgery, damage to local blood vessels or nerves, aseptic loosening of the implants, extensor mechanism issues including disruption, patellar maltracking, avascular necrosis etc., continued or worsened knee pain, generalized dissatisfaction with surgical outcome, need for revision surgery, an inability to regain preinjury level of function, DVT, PE, other medical complications, and possibly loss of life or limb. The patient voiced their understanding that while these are the most common complications other less common complications are possible. They provided both their verbal and written consent to go forward with surgery. Operative Findings: Severe tricompartmental osteoarthritis. Prior ACL reconstruction with torn graft. Description of Procedure: The patient was identified in preoperative holding and the correct operative extremity was verified and marked with a marker. I reviewed the consent form with the patient at length. All of their questions were answered. The patient was given a block by anesthesia. They were then brought back to the operating room. They were transferred onto the operating room table where a general anesthetic, preoperative antibiotics, and tranexamic acid were administered by anesthesia. A tourniquet was applied to the proximal aspect of the operative extremity. The contralateral extremity was padded under the heel and secured to the operating room table with a nonsterile blue towel and tape. The ipsilateral arm was carefully draped across the patient's chest and secured with a pillow and foam. A post was applied over the lateral aspect of the ipsilateral thigh and a bolster was placed under the ipsilateral foot. I verified that the operative extremity was stable and the knee was flexed to 90. The operative extremity was then placed in a leg ayala, nonsterile drapes were applied, and the extremity was prepped and draped sterilely in the standard sterile fashion. Prior to starting surgery timeout was performed identifying the correct patient, operative extremity, and procedure. The leg was then elevated, exsanguinated with an Esmarch bandage, and the tourniquet was inflated. An anterior midline incision was made sharply with a scalpel. Once I had dissected deep to the superficial fascial layer medial and lateral flaps were elevated. A medial parapatellar arthrotomy was created. Upon opening the knee joint there were diffuse arthritic changes in all 3 compartments. The anterior horn of the medial meniscus were sharply released and a medial release was performed around the posterior medial corner of the knee to facilitate retractor placement. The fat pad was excised with electrocautery. The patella was found to be severely arthritic and a provisional cut was made with a sagittal saw to facilitate mobilization of the extensor mechanism during the procedure. Remnants of the ACL and PCL were then excised from the notch. 4 mm pins were then placed within the incision in the medial distal femur and proximal tibia. Arrays were applied to the pins and I verified they were completely tightened. The knee was then registered with the GainSpan robot and manipulations in implant position were made to balance the knee and opitmize implant position. Using the Nick robotic saw all cuts were made in accordance with our plan. After all bony fragments had been removed the cuts were verified with the planar probe. The tibia was then subluxed forward and sized. The knee was brought into flexion and a lamina marine biologist was placed to allow removal of the meniscal remnants both medially and laterally as well as posterior osteophytes. Local anesthetic was then infiltrated around the joint capsule. Trial implants were then placed within the knee. Range of motion and collateral ligament tension was then evaluated. Adjustments in implant size and position were then made accordingly. Once the knee was felt to be appropriately balanced the Nick pins were removed. The patella was then recut, sized, and punched. A trial patellar button was then placed. With the trial components in place, the patella tracked midline. The femur was then drilled and the trial component removed. The trial tibial component was then appropriately rotated, pinned, and prepared for the keel. All trial components were then removed from the knee. The knee was thoroughly irrigated with pulsatile lavage. Cement was prepared via vacuum mixing in a bowl on the back table. I then hand pressurized cement into the femur and tibia and placed the implants beginning with the tibial base tray and poly liner, femoral component, and finally the patellar button. All extruded cement was removed including from the pin sites. Once the cement had hardened the knee was evaluated one final time with the final polyethylene liner in place. The knee had full extension and flexion and felt stable to varus and valgus stress throughout the arc of motion. The tourniquet was released and with the tourniquet down the patella tracked midline. All bleeders were controlled with electrocautery. The knee was then soaked for 3 minutes with a dilute Betadine soak. The knee was thoroughly irrigated using 3 L of sterile saline and pulsatile lavage. A deep drain was placed. The extensor mechanism was then reapproximated using pop off Vicryl sutures followed by a running barbed suture. The knee was then closed in layers with a 0 strata fix for the deep fascial layer, 2-0 strata fix for the superficial subcutaneous layer and Monocryl and Steri-Strips for the skin. A sterile dressing and drain sponge were applied. I verified that all instrument, sponge, and sharp counts were correct. The pat ient was then transferred off the operating room table, extubated, and brought to recovery having tolerated the procedure well. Tapan Mathews PA-C was required as a skilled marketing support assistant due to the complexity of surgery for patient positioning, draping, exposure, retraction, closure of wound and application of dressing. PLAN: The patient can weight-bear as tolerated on the operative extremity. DVT prophylaxis with aspirin 81 mg twice a day based on preoperative risk stratification. Follow-up in the office in 2 weeks for wound check and x-rays of the knee including an AP and lateral.
[2024-03-24] MEDS ORDERED: bisacodyL 10 MG SUPP RECTAL PRN (12:25)
[2024-03-24] MEDS ORDERED: NALOXONE 0.4 MG/ML 1 ML VIAL IV PRN (12:25)
[2024-03-24] MEDS ORDERED: diazePAM 5 MG TAB PO PRN ×2 (12:25)
[2024-03-24] MEDS ORDERED: HYDROcodone/APAP 5-325MG 1 EACH TAB PO PRN (12:25)
[2024-03-24] MEDS ORDERED: MAGNESIUM HYDROXIDE 2,400 MG/30 ML CUP PO PRN (12:25)
[2024-03-24] MEDS ORDERED: hydrOXYzine pamoate 25 MG CAP PO PRN (12:25)
[2024-03-24] MEDS ORDERED: HYDROmorphone 0.5 MG/0.5 ML SYRINGE IVP PRN ×2 (12:25)
[2024-03-24] MEDS: HYDROmorphone 0.5 MG/0.5 ML SYRINGE IVP PRN (13:06)
--- NOTE | 2024-03-24 13:15 | XR ---
EXAMINATION TYPE: XR knee limited LT DATE OF EXAM: 03/24/2024 COMPARISON: NONE CLINICAL INDICATION: Male, 68 years old with history of Evaluation for Postop abnormality and alignme nt; TECHNIQUE: 2 views FINDINGS: Images show placement of left total knee arthroplasty. Both distal femoral and proximal tib ial components of the prosthesis are well seated without periprosthetic fracture. Alignment grossly a natomic. There are interference screws likely related to prior ACL graft reconstruction. There is a h ypodensity large knee joint effusion possibly reflecting hemarthrosis. Scattered soft tissue air and intra-articular air related to recent operation. IMPRESSION: 1. Uncomplicated postoperative appearance to the left total knee arthroplasty. 2. Screws suggesting prior ACL graft reconstruction. Clinically correlate. 3. Suggestion of a large hemarthrosis given high density to the patient's joint effusion. [facility], , 03/24/2024 1:13 PM
[2024-03-24] MEDS: METOPROLOL TARTRATE 5 MG/5 ML VIAL IVP PRN (13:42)
[2024-03-24] MEDS: SENNOSIDES-DOCUSATE SODIUM 1 EACH TAB PO SCH (20:35)
[2024-03-24] MEDS: ASPIRIN 81 MG PO SCH (20:35)
[2024-03-24] MEDS: HYDROcodone/APAP 10-325MG 1 EACH TAB PO PRN (20:36)
[2024-03-25] MEDS: HYDROmorphone 0.5 MG/0.5 ML SYRINGE IVP PRN (01:35)
--- NOTE | 2024-03-25 08:20 | P.DS ---
Providers Date of admission: March 24, 2024 Attending physician: Doyle Giles Consults: 03/24/24 12:25 Consult Physician Routine Consulting Provider: Kurtis Hough Consult Reason/Comments: post op medical management Do you want consulting provider notified?: Yes Primary care physician: Kurtis Hough Hospital Course: Patient is a very pleasant 68-year-old male who was admitted under my care and underwent uncomplicated left total knee replacement yesterday. Following surgery he was transferred to the orthopedic floor. He received 2 doses of postoperative antibiotics. He was transitioned from IV to oral pain medication. He was seen on postoperative day #1 is doing well. He had moderate swelling in the knee but was comfortable. There was a small amount of strikethrough on the distal portion of the dressing so was taken down and changed. There is no active bleeding. A new sterile dressing was applied. Femoral nerve function was intact. The patient was able to actively plantarflex and dorsiflex his ankle and his toes. His thigh was soft and compressible. He worked with physical therapy and did well. Internal medicine has been consulted. The patient was ultimately cleared for discharge home. Patient Condition at Discharge: Good Plan - Discharge Summary Discharge Rx Participant: Yes New Discharge Prescriptions: New Omeprazole 20 mg PO DAILY #30 tab Ondansetron [Zofran] 4 mg PO Q6HR PRN #30 tab PRN Reason: Nausea HYDROcodone/APAP 10-325MG [[place] 10-325] 1 tab PO Q6HR PRN 7 Days #32 tab PRN Reason: Pain Aspirin 81 mg PO BID #60 tab Sennosides-Docusate Sodium [Senokot-S] 1 tab PO BID PRN #60 tablet PRN Reason: Constipation Diclofenac Sodium [Voltaren] 75 mg PO BID #60 tab No Action Celecoxib [CeleBREX] 200 mg PO BID Acetaminophen [Tylenol Extra Strength] 500 mg PO DIRECTED PRN PRN Reason: Pain Discharge Medication List Acetaminophen [Tylenol Extra Strength] 500 mg PO DIRECTED PRN 03/20/24 [History] Celecoxib [CeleBREX] 200 mg PO BID 03/20/24 [History] Aspirin 81 mg PO BID #60 tab 03/24/24 [Rx] Omeprazole 20 mg PO DAILY #30 tab 03/24/24 [Rx] Ondansetron [Zofran] 4 mg PO Q6HR PRN #30 tab 03/24/24 [Rx] Sennosides-Docusate Sodium [Senokot-S] 1 tab PO BID PRN #60 tablet 03/24/24 [Rx] Diclofenac Sodium [Voltaren] 75 mg PO BID #60 tab 03/25/24 [Rx] HYDROcodone/APAP 10-325MG [[place] 10-325] 1 tab PO Q6HR PRN 7 Days #32 tab 03/25/24 [Rx] Follow up Appointment(s)/Referral(s): Doyle Giles MD [Medical Doctor] - 2 Weeks Activity/Diet/Wound Care/Special Instructions: 1. Weight-bear as tolerated on your operative extremity unless instructed otherwise. Use a walker or other assistive device to ambulate. 2. Leave surgical dressing in place. If your dressing becomes saturated with blood, there is drainage, or the dressing becomes loose please contact the office. 3. It is okay to shower with your surgical dressing, but do not submerge in water (no hot tubs, bath's, swimming etc.) 4. Take your blood clot prevention medication as prescribed (aspirin, Eliquis, Xarelto, and Plavix are commonly prescribed medications for blood clot prevention) 5. While taking [place] or Percocet for pain take a stool softener (Ex: Colace) and drink lots of water. 6. Keep all follow-up appointments as scheduled. You will usually be seen in 1-2 weeks following surgery. 7. Please contact the office with any questions or concerns [phone] Discharge Disposition: HOME WITH HOME HEALTH SERVICES
[2024-03-25 08:35] VITALS: BP 152/83; PULSE 97; RESP 17; TEMP 98
[2024-03-25] MEDS: KETOROLAC 15 MG/ML 1 ML VIAL IVP STA (11:19)
[2024-03-25 12:56] LABS: Basophils # (A) 0.01 X 10*3/uL (0.00-0.10); Basophils % (A) 0.1 %; Eosinophils # (A) 0 X 10*3/uL (0.04-0.35); Eosinophils % (A) 0 %; HCT 36.6 % (39.6-50.0); HGB 11.6 g/dL (13.0-17.0); Lymphocytes # (A) 0.93 X 10*3/uL (0.90-5.00); Lymphocytes % (A) 7.8 %; MCH 30.9 pg (27.0-32.0); MCHC 31.7 g/dL (32.0-37.0); MCV 97.6 FL (80.0-97.0); Monocytes # (A) 1.01 X 10*3/uL (0.20-1.00); Monocytes % (A) 8.5 %; NRBC Per 100 WBC 0 X 10*3/uL (0.00-0.01); Neutrophils # (A) 9.91 X 10*3/uL (1.80-7.70); Neutrophils % (A) 83.1 %; Platelet Count 307 X 10*3/uL (140-440); RBC 3.75 X 10*6/uL (4.40-5.60); RDW 13.5 % (11.5-14.5); WBC 11.92 X 10*3/uL (4.50-10.00)
--- NOTE | 2024-03-25 14:04 | P.CONS ---
History of Present Illness - Reason for Consult Consult date: 03/25/24 Medical management - History of Present Illness History of present illness; patient is a 68-year-old gentleman with past medical history significant for prostate cancer who presented to the hospital for elective left total knee arthroplasty. Patient has been following up outpatient with orthopedics for his left knee pain. Patient had tried all conservative measures including pain management, therapy, steroid injections but all conservative measures failed. Patient was scheduled for left total knee replacement. Postoperatively internal medicine team were consulted. REVIEW OF SYSTEMS: CONSTITUTIONAL: No fever, no malaise, no fatigue. HEENT: No recent visual problems or hearing problems. Denied any sore throat. CARDIOVASCULAR: No chest pain, orthopnea, PND, no palpitations, no syncope. PULMONARY: No shortness of breath, no cough, no hemoptysis. GASTROINTESTINAL: No diarrhea, no nausea, no vomiting, no abdominal pain. NEUROLOGICAL: No headaches, no weakness, no numbness. HEMATOLOGICAL: Denies any bleeding or petechiae. GENITOURINARY: Denies any burning micturition, frequency, or urgency. MUSCULOSKELETAL/RHEUMATOLOGICAL: Left knee pain ENDOCRINE: Denies any polyuria or polydipsia. The rest of the 14-point review of systems is negative. PHYSICAL EXAMINATION: GENERAL: The patient is alert and oriented x3, not in any acute distress. Well developed, well nourished. HEENT: Pupils are round and equally reacting to light. EOMI. No scleral icterus. No conjunctival pallor. Normocephalic, atraumatic. No pharyngeal erythema. No thyromegaly. CARDIOVASCULAR: S1 and S2 present. No murmurs, rubs, or gallops. PULMONARY: Chest is clear to auscultation, no wheezing or crackles. ABDOMEN: Soft, nontender, nondistended, normoactive bowel sounds. No palpable organomegaly. MUSCULOSKELETAL: Left knee surgical incision EXTREMITIES: No cyanosis, clubbing, or pedal edema. NEUROLOGICAL: Gross neurological examination did not reveal any focal deficits. SKIN: No rashes. Assessment and plan Severe left knee osteoarthritis status post left total knee replacement Prostate cancer Monitor vital signs Monitor CBC Monitor CMP Continue pain management per orthopedics Continue DVT prophylaxis per orthopedics Resume home meds PT and OT consulted Labs and medication were reviewed.. Continue same treatment. Continue with symptomatic treatment. Resume home medication. Monitor labs and vitals. DVT and GI prophylaxis. Further recommendations as per clinical course of the patient Dictation was produced using [employer] dictation software. please excuse any grammatical, word or spelling errors. Past Medical History Past Medical History: Cancer, Eye Disorder, Osteoarthritis (OA), Sleep Apnea/CPAP/BIPAP Additional Past Medical History / Comment(s): Prostate CA/2017, glaucoma, uses CPAP normally History of Any Multi-Drug Resistant Organisms: None Reported Past Surgical History: Orthopedic Surgery, Prostate Surgery Additional Past Surgical History / Comment(s): left Knee arthroscopy to repair ACL; Colonoscopy, prostatectomy, cataracts removed, stents in both eyes for glaucoma, TLK Past Anesthesia/Blood Transfusion Reactions: Previous Problems w/ Anesthesia Additional Past Anesthesia/Blood Transfusion Reaction / Comm: took a long time for spinal to wear off w/arthroscopy Past Psychological History: No Psychological Hx Reported Smoking Status: Never smoker Past Alcohol Use History: Daily Additional Past Alcohol Use History / Comment(s): glass of wine or beer daily usually 1 or 2 Past Drug Use History: None Reported - Past Family History Mother Family Medical History: Cancer Additional Family Medical History / Comment(s): Colon CA Medications and Allergies Home Medications Medication Instructions Recorded Confirmed Type Acetaminophen [Tylenol Extra 500 mg PO DIRECTED PRN 03/20/24 03/24/24 History Strength] Celecoxib [CeleBREX] 200 mg PO BID 03/20/24 03/24/24 History Aspirin 81 mg PO BID #60 tab 03/24/24 Rx Omeprazole 20 mg PO DAILY #30 tab 03/24/24 Rx Ondansetron [Zofran] 4 mg PO Q6HR PRN #30 tab 03/24/24 Rx Sennosides-Docusate Sodium 1 tab PO BID PRN #60 tablet 03/24/24 Rx [Senokot-S] Diclofenac Sodium [Voltaren] 75 mg PO BID #60 tab 03/25/24 Rx HYDROcodone/APAP 10-325MG [[place] 1 tab PO Q6HR PRN 7 Days #32 tab 03/25/24 Rx 10-325] Allergies Allergy/AdvReac Type Severity Reaction Status Date / Time No Known Allergies Allergy Verified 03/24/24 08:46 Physical Exam Vitals: Vital Signs Temp Pulse Resp BP Pulse Ox 03/25/24 07:05 98.0 F 97 17 152/83 95 03/25/24 01:58 98 F 103 H 19 123/75 96 03/24/24 20:00 98.6 F 82 18 146/82 96 03/24/24 15:47 91 136/81 94 L 03/24/24 15:32 97 159/80 95 03/24/24 15:17 91 154/87 94 L 03/24/24 15:00 97.5 F L 92 16 142/86 94 L 03/24/24 14:23 114 H 16 159/90 97 03/24/24 14:06 126 H 16 158/83 95 Intake and Output 03/24/24 03/25/24 03/25/24 22:59 06:59 14:59 Intake Total 120 Balance 120 Intake: Oral 120 Other: Voiding Method Toilet Toilet # Voids 1 1 1 Results CBC & Chem 7: 03/25/24 03:17 Labs: Abnormal Lab Results - Last 24 Hours (Table) 03/25/24 Range/Units 03:17 WBC 11.92 H (4.50-10.00) X 10*3/uL RBC 3.75 L (4.40-5.60) X 10*6/uL Hgb 11.6 L (13.0-17.0) g/dL Hct 36.6 L (39.6-50.0) % MCV 97.6 H (80.0-97.0) FL MCHC 31.7 L (32.0-37.0) g/dL MPV 9.0 L (9.5-12.2) FL Immature Gran # 0.06 H (0.00-0.04) X 10*3/uL Neutrophils # 9.91 H (1.80-7.70) X 10*3/uL Monocytes # 1.01 H (0.20-1.00) X 10*3/uL Eosinophils # 0 L (0.04-0.35) X 10*3/uL
== END 2024-03-25 13:44 | disposition home health service (06) ==
LOC: OR 07:53 → 4SSUR 12:33 → OR 03-25 13:44
PROVIDERS: ATTEND Orthopaedic Surgery
DX: M17.12 Unilateral primary osteoarthritis, left knee (principal); M16.0 Bilateral primary osteoarthritis of hip; G89.18 Other acute postprocedural pain; G47.33 Obstructive sleep apnea (adult) (pediatric); M51.369 Other intervertebral disc degeneration, lumbar region without mention of lumbar back pain or lower extremity pain; E66.01 Morbid (severe) obesity due to excess calories; Z68.31 Body mass index [BMI] 31.0-31.9, adult; Z79.82 Long term (current) use of aspirin; Z79.1 Long term (current) use of non-steroidal anti-inflammatories (NSAID); Z79.899 Other long term (current) drug therapy; Z87.828 Personal history of other (healed) physical injury and trauma; Z85.46 Personal history of malignant neoplasm of prostate; Z91.09 Other allergy status, other than to drugs and biological substances
CPT/HCPCS: 0055T; 27447; S2900; 64447; 64999; 85025

== ENCOUNTER → 2024-08-13 | Outpatient (CLI) | payer MEDICARE ==
--- NOTE | 2024-08-13 10:38 | MR ---
EXAMINATION TYPE: MR brain wo/w con DATE OF EXAM: 08/13/2024 9:53 AM COMPARISON: None. CLINICAL INDICATION: Male, 68 years old with history of R53.1 WEAKNESS, Weakness and numbness in arms and legs, Hx Prostate cancer 2017 IV Contrast: 12 cc Gadobutrol (None if empty) TECHNIQUE: Multiplanar, multisequence images of the brain and brainstem is performed without and with IV contras t, utilizing 12 mL intravenous Gadobutrol . FINDINGS: On the T1-weighted sagittal images the midline structures including the craniovertebral junction rela tionships are normal. The ventricles, basal cisterns and sulci over convexities are mildly to moderately enlarged consisten t with mild to moderate generalized atrophy. There is no mass effect or shift of midline structures. There are a few small focal areas of abnormal increased signal intensity on the T2 and FLAIR images i n the subcortical white matter both cerebral hemispheres consistent with chronic ischemic white matte r change. The diffusion-weighted images, there is no diffusion restriction or acute ischemic event. There is a remote lacunar infarct in the left cerebellum and a moderate infarct in the posterior righ t cerebellum. Cerebellopontine angles and fourth ventricle are normal. On the susceptibility weighted images, there are no focal hemorrhages. Following contrast administration, there is no pathological enhancement. The intraorbital contents are normal symmetric. There are marked chronic inflammatory changes in the maxillary sinuses and mild chronic inflammatory changes in the ethmoid air cells. The mastoid air stepan ls are well aerated. IMPRESSION: 1. Mild to moderate generalized atrophy and mild multifocal chronic ischemic white matter change in t he subcortical white matter. 2. 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 3. No acute ischemic event. 4. No parenchymal hemorrhage. 5. No pathological enhancement or mass. No shift in midline structures. 6. Chronic inflammatory changes in the maxillary and ethmoid air cells as described above. [facility], , 08/13/2024 10:36 AM
== END | disposition home or self-care (01) ==
LOC: RADMRIMAIN 09:13
PROVIDERS: ATTEND Orthopaedic Surgery Orthopaedic Surgery of the Spine
DX: G31.1 Senile degeneration of brain, not elsewhere classified (principal); I67.82 Cerebral ischemia; R53.1 Weakness; J34.89 Other specified disorders of nose and nasal sinuses
CPT/HCPCS: 70553; A9585

== ENCOUNTER → 2024-09-21 | Outpatient (CLI) | payer MEDICARE ==
[2024-09-21 15:26] LABS: Blood Urea Nitrogen 14.4 mg/dL (9.0-27.0)
== END | disposition home or self-care (01) ==
LOC: LABWHC1 08:15
PROVIDERS: ATTEND Psychiatry & Neurology Neurology
DX: Z13.89 Encounter for screening for other disorder (principal)
CPT/HCPCS: 36415; 82565; 84520